=== PATIENT | female | born 2000 | race Caucasian/White ===

== ENCOUNTER 2019-01-16 09:10 | Emergency (ER) | payer BC ==
[2019-01-16 09:36] VITALS: BP 140/85
--- NOTE | 2019-01-16 10:28 | UC ---
Dental HPI - HPI Summary HPI Summary: Pt presents with c/o of swelling on upper gum line between right front teeth. Pt has hx of multiple root canals on right front tooth and has intermittent swelling on gum line since having root canals done. Pt states that first root canal an dcrown were not done correctly and has since been revised. Pt has hx of dental abscess in same tooth. - History of Current Complaint Chief Complaint: UCDentalProblem Stated Complaint: DENTAL COMPLAINT Time Seen by Provider: 01/16/19 10:06 Hx Obtained From: Patient Hx Last Menstrual Period: 01/15/19 ?: No Onset/Duration: Gradual Onset, Lasting Weeks, Still Present, Worse Since - onset Severity: Moderate Pain Intensity: 6 Aggravating Factor(s): Chewing Alleviating Factor(s): Nothing Related History: Previous Dental Care on Same Tooth, Swelling - Allergies/Home Medications Allergies/Adverse Reactions: Allergies Allergy/AdvReac Type Severity Reaction Status Date / Time amoxicillin [From Augmentin] Allergy Rash Verified 01/16/19 09:37 clavulanic acid Allergy Rash Verified 01/16/19 09:37 [From Augmentin] codeine Allergy Airway Verified 01/16/19 09:37 Obstruction Home Medications: Home Medications Ibuprofen TAB* [Advil TAB*] 1 tab PO ONCE 01/16/19 [History Confirmed 01/16/19] PMH/Surg Hx/FS Hx/Imm Hx Previously Healthy: Yes - Surgical History Surgical History: None - Family History Known Family History: Positive: Cardiac Disease - Social History Occupation: Student Lives: With Family Alcohol Use: Rare Substance Use Type: None Smoking Status (MU): Never Smoked Tobacco Have You Smoked in the Last Year: No - Immunization History Most Recent Influenza Vaccination: yes Vaccination Up to Date: Yes Review of Systems All Other Systems Reviewed And Are Negative: Yes Constitutional: Positive: Negative Skin: Positive: Negative Eyes: Positive: Negative ENT: Positive: Dental Pain, Other - gum swelling Respiratory: Positive: Negative Cardiovascular: Positive: Negative Gastrointestinal: Positive: Negative Genitourinary: Positive: Negative Motor: Positive: Negative Neurovascular: Positive: Negative Musculoskeletal: Positive: Negative Neurological: Positive: Negative Psychological: Positive: Negative Is Patient Immunocompromised?: No Physical Exam Triage Information Reviewed: Yes Appearance: Well-Appearing Vital Signs: Initial Vital Signs Temp 98.0 F 01/16/19 09:31 Pulse 78 01/16/19 09:31 Resp 16 08/08/19 09:31 BP 140/85 01/16/19 09:31 Pulse Ox 100 01/16/19 09:31 Vital Signs Reviewed: Yes Eye Exam: Normal ENT Exam: Normal Dental: Positive: Abscess @ - right front tooth, tender soft swelling Neck exam: Normal Respiratory Exam: Normal Respiratory: Positive: No respiratory distress Musculoskeletal Exam: Normal Neurological Exam: Normal Psychological Exam: Normal Skin Exam: Normal Dental Complaint Course/Dx - Differential Dx/Diagnosis Differential Diagnosis/Dx: Dental Abscess, Gingivitis Provider Diagnosis: Dental abscess Discharge - Sign-Out/Discharge Documenting (check all that apply): Patient Departure All imaging exams completed and their final reports reviewed: No Studies - Discharge Plan Condition: Stable Disposition: HOME Prescriptions: Chlorhexidine Gluconate [Periogard] 5 ml PO Q12H #100 ml Clindamycin Cap(NF) [Clindamycin Cap 300 mg Cap(NF)] 300 mg PO Q8H #30 cap Fluoride (Sodium) [Fluoridex] 112 gm DT Q12H #1 paste..g. Patient Education Materials: Dental Abscess (ED) Referrals: Vera Rasheed [Primary Care Provider] - If Needed Additional Instructions: Please follow up with your dental care provider as soon as possible. - Billing Disposition and Condition Condition: STABLE Disposition: Home
== END 2019-01-16 10:47 | disposition home or self-care (01) ==
LOC: UCCORT 09:10
DX: K04.7 Periapical abscess without sinus (principal); Z88.0 Allergy status to penicillin
CPT/HCPCS: 99202; G0463